=== PATIENT | female | born 1985 | race Caucasian/White ===

== ENCOUNTER 2016-07-24 13:03 | Emergency (ER) | payer OTHER ==
[~2016-07-24] VITALS: Ht 162.6 cm; Wt 57.8 kg
[2016-07-24 13:13] VITALS: BP 142/78
--- NOTE | 2016-07-24 16:02 | NUR ---
Pt ambulated to bed 7.
--- NOTE | 2016-07-24 16:10 | NUR ---
PATIENT PRESENTS TO ED WITH BILATERAL LOWER ABD PAIN X 2 MONTHS ON AND OFF, CURRENTLY DOES NOT HAVE PAIN . PT STATES SHE CURRENTLY HAS FREQUENT URINATION AND NAUSEA, PATIENT ALSO SAYS SHE HAS PAIN DURING SEX . DENIES V/D; SKIN IS PINK/WARM/DRY; AAOX4 WITH EVEN AND STEADY GAIT; LUNGS CLEAR BL; HR EVEN AND REGULAR; PT DENIES ANY FEVER, CP, SOB, OR COUGH AT THIS TIME; PATIENT STATES PAIN OF 0/10 AT THIS TIME; VSS; PATIENT SITTING IN CHAIR, NO CURRENT DISTRESS NOTED AT THIS TIME.
[2016-07-24] MEDS ORDERED: LEVOFLOXACIN 500 MG TAB PO ONE (16:55)
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
--- NOTE | 2016-07-24 17:25 | NUR ---
Jen rivera in [facility] - 07/24/16 at 1800 by [place] PATIENT TAKEN TO ULTRASOUND VIA WHEELCHAIR
--- NOTE | 2016-07-24 17:30 | NUR ---
PATIENT RETURNED TO CHAIRSIDE
--- NOTE | 2016-07-24 17:31 | NUR ---
Jen rivera in [facility] - 07/24/16 at 1800 by MNAMMA PATIENT RETURNED TO [facility]
[2016-07-24] MEDS ORDERED: cefTRIAXone 250 MG in LIDOCAINE 1% ED 0.9 ML IM ONE (17:50)
--- NOTE | 2016-07-24 17:58 | NUR ---
PATIENT RETURNED FROM ULTRASOUND VIA WHEELCHAIR
[2016-07-24] MEDS ORDERED: AZITHROMYCIN 250 MG TAB PO ONE (18:45)
--- NOTE | 2016-07-24 19:00 | NUR ---
Patient discharged with v/s stable. Written and verbal after care instructions given and explained. Patient alert, oriented and verbalized understanding of instructions. Ambulatory with steady gait. All questions addressed prior to discharge. ID band removed. Patient advised to follow up with PMD. Rx of NORCO AND LEVAQUIN given. Patient educated on indication of medication including possible reaction and side effects. Opportunity to ask questions provided and answered.
[2016-07-24 19:01] VITALS: BP 127/68
== END 2016-07-24 19:00 | disposition home or self-care (01) ==
LOC: MED 13:03
DX: N39.0 Urinary tract infection, site not specified (principal); R03.0 Elevated blood-pressure reading, without diagnosis of hypertension
CPT/HCPCS: 36415; 76856; 81002; 81025; 87491; 96372; 99285; J0696; J2001

== ENCOUNTER 2021-11-01 08:59 | Emergency (ER) | payer OTHER ==
[~2021-11-01] VITALS: Ht 162.6 cm; Wt 56.2 kg
[2021-11-01 09:21] VITALS: BP 146/94
--- NOTE | 2021-11-01 12:20 | NUR ---
1ST CALL N/A ER LOBBY 2ST CALL N/A ER LOBBY [id number] 3RD CALL N/A ER LOBBY [id number]
== END 2021-11-01 12:20 | disposition left against medical advice (07) ==
LOC: MED 08:59
DX: R07.0 Pain in throat (principal); Z53.21 Procedure and treatment not carried out due to patient leaving prior to being seen by health care provider

== ENCOUNTER 2022-01-02 02:50 | Emergency (ER) | payer OTHER ==
[~2022-01-02] VITALS: Ht 162.6 cm; Wt 56.2 kg
[2022-01-02 02:54] VITALS: BP 134/82
--- NOTE | 2022-01-02 02:59 | NUR ---
TO LOBBY FOLLOWING TRIAGE
--- NOTE | 2022-01-02 03:00 | NUR ---
Pt received AAOX4, s/p slip and fall incidence injuring left foot middle toe. Addendum: 01/02/22 at 0648 by [email or web address] correct site: Left foot 2nd toe
--- NOTE | 2022-01-02 04:00 | NUR ---
No lidocaine in the [facility]. Attempt to remove a vial, however closed the fuel cell test engineer error, without cancelling removal (since there was none to remove), concrete pipe plant supervisor -Marti Denney present and aware. Dry Room Operator stated she will correct w/ pharmacy in AM when they are open. ER MD aware of no lidocaine status, which is causing a delay in treatment.
[2022-01-02] MEDS ORDERED: LIDOCAINE 2% 1000 MG/50 ML VIAL INJ ONE (04:30)
[2022-01-02] MEDS ORDERED: LIDOCAINE MPF 1% 10 MG/ML VIAL INJ ONE (05:45)
--- NOTE | 2022-01-02 05:50 | NUR ---
Lidocaine brought by cargo supervisor from ICU for LAC repair of Pt Left foot 2nd toe injury.
--- NOTE | 2022-01-02 06:00 | NUR ---
Laceration repair done. Pt w/ [address], tolerated procedure well.
[2022-01-02 07:10] VITALS: BP 132/84
--- NOTE | 2022-01-02 07:10 | NUR ---
Patient discharged with v/s stable. Written and verbal after care instructions given and explained to parent/guardian. Parent/Guardian verbalized understanding. Ambulatorysteady gait. All questions addressed prior to discharge. Advised to follow up with PMD, urgent care or ER to remove stitches in 7-10 days.
== END 2022-01-02 07:10 | disposition home or self-care (01) ==
LOC: MED 02:50
DX: S91.119A Laceration without foreign body of unspecified toe without damage to nail, initial encounter (principal); W26.9XXA Contact with unspecified sharp object(s), initial encounter; Y93.89 Activity, other specified; Y92.89 Other specified places as the place of occurrence of the external cause; Y99.8 Other external cause status
CPT/HCPCS: 12002; 99282; J2001